=== PATIENT | female | born 1990 | race Caucasian/White ===

== ENCOUNTER 2018-02-28 01:28 | Observation (INO) ==
[2018-02-28] MEDS ORDERED: Naloxone 0.4 MG/ML INJ IVP PRN (05:14)
--- NOTE | 2018-02-28 05:44 | Internal Med History&Physical ---
Date of Encounter: 02/28/18 Time of Encounter: 04:45 Internal Medicine - H&P: HPI Chief complaint: Pulmonary Embolism Admitted From: Home Plans for Post Hospital Care: Home History of present illness: Ms. Izaguirre is a 27 year old female Patient not cooperative with questioning or exam, but from prior ER report patient was out walking in the park when she suddenly felt chest pain. 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 She went to the ER and CT was highly suspicious for acute thromboembolic disease. No evidence of right heart strain. She was given Lovenox at 1mg/kg, and transferred to [facility] for continued management. Of note, her UA was positive for amphetamines. She admitted to using about 3 days ago. She denies chest pain, nausea and vomiting. Does have some upper epigastric pain with palpation. She was sleeping during my examination and would not answer a majority of my questions. Past Med Surg Social Fam HX - Past Medical History Medical history: DVT, other Additional medical history: BLOOD CLOTS IN LEGS DURING Psychiatric history: no psych history - Past Surgical History Surgical History: no surgical history - Social History Smoking Status: Current every day smoker Packs per day: 1pk daily Smokeless Tobacco Status: No Alcohol use: none Drug use: opiates, IV Drug Use, other Internal Medicine - H&P: Meds No Known Home Drugs 02/27/18 [History] 3 Allergy/AdvReac Type Severity Reaction Status Date / Time Amoxicillin Allergy Rash Verified 04/21/15 00:47 CILLINS Allergy Rash Uncoded 02/27/18 22:39 ROS unobtainable: due to mental status All Systems PM: Patient uncooperative with exam, did state she had upper epigastric pain, but denied other pain. - Constitutional Vitals: Temp Pulse Resp BP Pulse Ox 98.2 F 114 18 121/83 99 02/28/18 03:14 02/28/18 03:14 02/28/18 03:14 02/28/18 03:14 02/28/18 03:14 General appearance: Present: no acute distress. Absent: cooperative, mild distress - Head Head exam: Present: normal inspection - Neck Neck exam general surgery: Absent: tenderness - Respiratory Respiratory exam: Present: CTAB. Absent: chest wall tenderness, decreased breath sounds, rales, wheezes - Cardiovascular Cardiovascular exam: Present: RRR. Absent: diastolic murmur, systolic murmur - GI/Abdominal GI/Abdominal exam: Present: normal bowel sounds, tenderness. Absent: distended , firm, guarding Additional comments: Epigastric tenderness - Extremities Exam Extremities exam: Present: warm, radial pulses palpable and symmetrical. Absent : tenderness - Psychiatric Psychiatric exam: Absent: agitated, anxious - Skin Skin exam: Present: dry, normal color, warm - Assessment and plan (1) Pulmonary embolism Current Visit: No Status: Acute Assessment and plan: Patient takes no medications, and has a history of previous blood clots. Apparently her previous clots occurred while she was . She denies having a PE before. Patient should be tested for clotting disorders, though may need to wait until after current treatment is completed. Patient also IV drug abuser, and tricuspid heart valve vegetations are a possibility, leading to septic emboli which could explain her current PE. Continue lovenox 1mg/kg Q12H Consider coagulation workup Consider echocardiogram Consider fci anticoagulation Qualifiers: Qualified Code(s): I26.99 - Other pulmonary embolism without acute cor pulmonale (2) Amphetamine abuse Current Visit: Yes Status: Acute Assessment and plan: Patient's urine tox screen was positive for amphetamines. She states that she last used about 3 days ago. Unclear if related to her pulmonary embolism, but an echo cardiogram should be considered as above Continue to monitor. (3) History of DVT (deep vein thrombosis) Current Visit: Yes Status: Acute Assessment and plan: Currently denies leg pain, not on anticoagulation at time of PE. - Time Spent With Patient Total time spent is greater than 50% in coordination of care (as documented) at patient's floor/unit and/or counseling patient: Greater than 35 minutes
[2018-02-28 06:23] LABS: Hematocrit 38.4 % (35.3-44.9); Hemoglobin 12.1 g/dL (11.5-15.4); Mean Corpuscular HGB Conc 31.5 g/dL (31.6-35.5); Mean Corpuscular Hemoglobin 27.9 pg (28.0-33.3); Mean Corpuscular Volume 88.5 fL (83.0-100.0); Mean Platelet Volume 10.3 fL (9.4-12.4); Platelet Count 231 K/mcL (140-400); Red Blood Count 4.34 M/mcL (3.82-4.97)
[2018-02-28 06:43] LABS: BUN/Creatinine Ratio 16 (6-26); Blood Urea Nitrogen 9 mg/dL (6-20); Calcium 8.9 mg/dL (8.6-10.3); Carbon Dioxide 24 mEq/L (23-29); Chloride 107 mEq/L (98-107); Glucose 107 mg/dL (70-105); Osmolality,Calculated 281 (280-300); Potassium 3.7 mEq/L (3.5-5.1); Sodium 136 mEq/L (136-145); eGFR For African Americans > 60 (> 60); eGFR For Non-African Americans > 60 (> 60)
[2018-02-28] MEDS: *HR* Enoxaparin 60 MG/0.6 ML SYRINGE SQ SCH ×2 (11:25→20:51)
[2018-02-28] MEDS: Acetaminophen 325 MG TABLET PO PRN ×2 (13:33→20:51)
[2018-03-01] MEDS: *HR* Enoxaparin 60 MG/0.6 ML SYRINGE SQ SCH (04:57)
--- NOTE | 2018-03-01 07:48 | Internal Med Progress Note ---
<Rosalio Asencio - Last Filed: 03/01/18 11:09> Date of Encounter: 03/01/18 Time of Encounter: 07:45 - Assessment and plan (1) Pulmonary embolism Current Visit: Yes Status: Acute Assessment and plan: Pulmonary embolism evidenced by infarct on CTA chest History of clotting On therapeutic lovenox Some improvement in symptoms is noted, remains tachycardic Will continue to monitor Qualifiers: Pulmonary embolism type: other Chronicity: acute Acute cor pulmonale presence: without acute cor pulmonale Qualified Code(s): I26.99 - Other pulmonary embolism without acute cor pulmonale (2) Amphetamine abuse Current Visit: Yes Status: Acute Assessment and plan: UDS Positive for Amphetamines Hx of IVDU (3) History of DVT (deep vein thrombosis) Current Visit: Yes Status: Acute (4) Pneumonia Current Visit: Yes Status: Suspected Assessment and plan: Suspected pneumonia, unknown organism patient was febrile overnight, remains tachycardic and SOB overnight Repeat CXR, Blood and urine cultures Qualifiers: Pneumonia type: due to unspecified organism Laterality: unspecified laterality Lung location: unspecified part of lung Qualified Code(s): J18.9 - Pneumonia, unspecified organism - Time Spent With Patient Total time spent is greater than 50% in coordination of care (as documented) at patient's floor/unit and/or counseling patient: - Subjective Interval history: Patient is seen and examined at bedside. She is lying in bed and remains uncomfortable on examination. She says that overnight she continued to have hot flashes, and she is still not feeling very well. She does admit to some shortness of breath. She did have some fevers overnight and she remains tachycardic.. - Constitutional Vitals: Temp Pulse Resp BP Pulse Ox 99.7 F H 101 15 111/73 98 03/01/18 06:17 03/01/18 06:17 03/01/18 06:17 03/01/18 06:17 03/01/18 06:17 General appearance: Present: no acute distress. Absent: cooperative, mild distress Exam: Gen: Vitals noted. No acute distress. Patient is not highly cooperative with examination. Her skin is hyperemic with excessive warmth. HEENT: Normocephalic, atraumatic Neck: Supple. No adenopathy. Cardiac: RRR but tachycardic, no murmur, +S1/S2 Pulmonary: Poor inspiratory effort without obvious crackles, wheezes, rhonchi. Abdomen: soft, nontender, no guarding Back: Nontender throughout. Extremities: no BLE edema, nontender calf, no cyanosis or clubbing Neuro: moves all extremities, no focal deficits. A&Ox3 Psych: Appropriate mood and behavior Internal Medicine: Result - Labs CBC & Chem 7: 03/01/18 07:56 02/28/18 06:01 - Impressions Impressions Echocardiogram 02/28/18 07:30 Impressions: LVEF 70%. Normal LV chamber size, wall thickness and function. Normal left ventricular diastolic function. Normal right ventricular structure and function. No evidence of pulmonary hypertension. No significant valvular dysfunction. No evidence of endocarditis visualized. Left Ventricular Wall Motion: Rest Echo Findings All wall segments showed normal motion. Findings: Study Quality * Technically adequate exam. ECG Findings * Normal sinus rhythm. Left Ventricle * LVEF 70%. * Normal LV chamber size, wall thickness and function. * Normal left ventricular diastolic function. Right Ventricle * Normal right ventricular structure and function. Left Atrium * Normal left atrial size. Right Atrium * Normal right atrial size. Aortic Valve * Normal aortic valve function. * No aortic regurgitation. * No aortic stenosis. Mitral Valve * Normal mitral valve structure and function. * No mitral regurgitation. * No mitral stenosis. Tricuspid Valve * Normal tricuspid valve structure and function. * Trace tricuspid regurgitation. * No evidence of pulmonary hypertension. Pulmonic Valve * Pulmonic valve is not well visualized. Aorta * Normally sized aortic root. Pericardium * The pericardium appears normal. IVC * Normal IVC dimensions and inspiratory collapse. Pulmonary Artery * Normal visualized portions of the main pulmonary artery. Consult Discharge Plan - Plan Referrals: NONE,PCP [Primary Care Provider] - <Rebel Rodriguez - Last Filed: 03/01/18 13:23> Date of Encounter: 03/01/18 - Assessment and plan (1) Amphetamine abuse Current Visit: Yes Status: Acute (2) History of DVT (deep vein thrombosis) Current Visit: Yes Status: Acute (3) Pulmonary embolism Current Visit: Yes Status: Acute Qualifiers: Pulmonary embolism type: other Chronicity: acute Acute cor pulmonale presence: without acute cor pulmonale Qualified Code(s): I26.99 - Other pulmonary embolism without acute cor pulmonale (4) Pneumonia Current Visit: Yes Status: Suspected Qualifiers: Pneumonia type: due to unspecified organism Laterality: unspecified laterality Lung location: unspecified part of lung Qualified Code(s): J18.9 - Pneumonia, unspecified organism - Time Spent With Patient Total time spent is greater than 50% in coordination of care (as documented) at patient's floor/unit and/or counseling patient: - Constitutional Vitals: Temp Pulse Resp BP Pulse Ox 98.7 F 85 15 107/76 99 03/01/18 11:35 03/01/18 11:35 03/01/18 11:35 03/01/18 11:35 03/01/18 11:35 Internal Medicine: Result - Labs CBC & Chem 7: 03/01/18 07:56 02/28/18 06:01 Labs: Short CBC 03/01/18 Range/Units 07:56 WBC 13.7 H (4.3-11.1) K/mcL Hgb 12.3 (11.5-15.4) g/dL Hct 38.2 (35.3-44.9) % Plt Count 259 (140-400) K/mcL Neutrophils # 10.7 H (1.6-8.9) K/mcL - Impressions Impressions Echocardiogram 02/28/18 07:30 Impressions: LVEF 70%. Normal LV chamber size, wall thickness and function. Normal left ventricular diastolic function. Normal right ventricular structure and function. No evidence of pulmonary hypertension. No significant valvular dysfunction. No evidence of endocarditis visualized. Left Ventricular Wall Motion: Rest Echo Findings All wall segments showed normal motion. Findings: Study Quality * Technically adequate exam. ECG Findings * Normal sinus rhythm. Left Ventricle * LVEF 70%. * Normal LV chamber size, wall thickness and function. * Normal left ventricular diastolic function. Right Ventricle * Normal right ventricular structure and function. Left Atrium * Normal left atrial size. Right Atrium * Normal right atrial size. Aortic Valve * Normal aortic valve function. * No aortic regurgitation. * No aortic stenosis. Mitral Valve * Normal mitral valve structure and function. * No mitral regurgitation. * No mitral stenosis. Tricuspid Valve * Normal tricuspid valve structure and function. * Trace tricuspid regurgitation. * No evidence of pulmonary hypertension. Pulmonic Valve * Pulmonic valve is not well visualized. Aorta * Normally sized aortic root. Pericardium * The pericardium appears normal. IVC * Normal IVC dimensions and inspiratory collapse. Pulmonary Artery * Normal visualized portions of the main pulmonary artery. - Attending Attestation I performed an independent interview and exam of this patient. I agree with the findings, assessment, and plan of Dr. Asencio, internal medicine resident. We discussed case together. Patient did have a fever today. I favor this is due to pulmonary embolism and atelectasis. Nonetheless we will check cultures of blood, also chest x-ray 2 view to rule out infection. We will discuss with social work regarding method of anticoagulation which will work with her insurance. She does remain hemodynamically stable satting 99% on room air. Continue to monitor. Gen: AAOx3, ill appearing, dipahoretic Skin Warm Lung - dimin bs bases Ht RRR Abd soft +BS, NT Ext no edema
[2018-03-01 08:09] LABS: Basophils % 0.2 %; Eosinophils % 0.2 %; Hematocrit 38.2 % (35.3-44.9); Hemoglobin 12.3 g/dL (11.5-15.4); Immature Granulocytes % 0.4 % (0-4); Lymphocytes # 1.4 K/mcL (0.6-4.6); Mean Corpuscular HGB Conc 32.2 g/dL (31.6-35.5); Mean Corpuscular Hemoglobin 27.6 pg (28.0-33.3); Mean Corpuscular Volume 85.8 fL (83.0-100.0); Mean Platelet Volume 9.7 fL (9.4-12.4); Monocytes # 1.6 K/mcL (0.0-1.3); Monocytes % 11.5 %; Neutrophils # 10.7 K/mcL (1.6-8.9); Platelet Count 259 K/mcL (140-400); Red Blood Count 4.45 M/mcL (3.82-4.97); Segmented Neutrophils % 77.7 %
[2018-03-01] MEDS: Acetaminophen 325 MG TABLET PO PRN (10:27)
[2018-03-01 16:50] VITALS: BP 123/82
--- NOTE | 2018-03-01 16:51 | Discharge Summary ---
<Rosalio Asencio - Last Filed: 03/01/18 17:34> - NOTES TO OUTPATIENT PROVIDER Notes to Outpatient Provider: Patient presented with hypoxia, was found to have pulmonary embolism on CTA. There was some question about pulmonary infarct on CTA and chest x-ray today, plan to start the patient on IV antibiotics and continue heparin drip for anticoagulation while setting of long-term oral anticoagulation when the patient left AMA. We did plan to start the patient on Xarelto as well as antibiotics today and to monitor. The patient left before prescriptions could be given for these drugs Date of Encounter: 03/01/18 Time of Encounter: 16:25 - Discharge Diagnosis (1) Pulmonary embolism Priority: Primary Status: Acute Assessment and Plan: Pulmonary embolism evidenced by infarct on CTA chest History of clotting, was on therapeutic lovenox Some improvement in symptoms is noted, remains tachycardic Planned to continue anti-coagulation. Sent Xarelto script to [facility] Qualifiers: Pulmonary embolism type: other Chronicity: acute Acute cor pulmonale presence: without acute cor pulmonale Qualified Code(s): I26.99 - Other pulmonary embolism without acute cor pulmonale (2) Amphetamine abuse Priority: Secondary Status: Acute Assessment and Plan: UDS Positive for Amphetamines Hx of IVDU (3) History of DVT (deep vein thrombosis) Priority: Secondary Status: Chronic (4) Pneumonia Priority: Secondary Status: Suspected Assessment and Plan: Suspected pneumonia, unknown organism patient was febrile overnight, remains tachycardic and SOB overnight Planned for repeat CXR, Blood and urine cultures. Patient left prior to blood + urine culture Sent Script for PO Levaquin to [facility] Qualifiers: Pneumonia type: due to unspecified organism Laterality: unspecified laterality Lung location: unspecified part of lung Qualified Code(s): J18.9 - Pneumonia, unspecified organism Hospital course: Ms. Izaguirre is a 27 year old female with history of IV drug use, clotting disorder , DVTs and legs. She presented with dyspnea and was found to have a pulmonary embolism with possible left pulmonary infarct in the lower lobe. She was started on therapeutic Lovenox, however she continued to have tachycardia and did spike a fever overnight. With concern for infection, we repeated the chest x-ray and intended to start Levaquin, however the patient determined that she should leave AMA. I explained the risks to the patient and that she was at high risk for worsening pulmonary status and potentially , and I also explained that she could have a severe infection which will continue to get worse. She understands these risks and she chooses to leave anyway. I explained to her that she is welcome to come back to the ED at any time, and I recommend that she does if able as this treatment is extremely important. I did send a prescription for anticoagulants to pharmacy as well as a prescription for oral Levaquin. The nurses attempted to contact the patient in order to let her know that these prescriptions have been sent. We have been unable to do so at this time. Discharge discussed with: patient, nurse, case management - Time Spent with Patient Total time spent providing and/or coordinating discharge services: Greater than 30 minutes - Discharge Medications Prescriptions: levoFLOXacin [Levaquin] 750 mg PO DAILY #7 tablet Rivaroxaban [Xarelto] 1 dose PO AD 30 Days #1 pack Home Medications: Rivaroxaban [Xarelto] 1 dose PO AD 30 Days #1 pack 03/01/18 [Rx] levoFLOXacin [Levaquin] 750 mg PO DAILY #7 tablet 03/01/18 [Rx] Allergies/Adverse Reactions: 3 Allergy/AdvReac Type Severity Reaction Status Date / Time Amoxicillin Allergy Rash Verified 02/28/18 10:51 CILLINS Allergy Unknown Rash Uncoded 02/28/18 10:51 Date of admission: 02/28/18 03:06 Primary care physician: PCP NONE Discharging clinician: Rosalio Asencio Anticipated date of discharge: 03/01/18 - Constitutional Vitals: Temp Pulse Resp BP Pulse Ox 98.7 F 85 15 107/76 99 03/01/18 11:35 03/01/18 11:35 03/01/18 11:35 03/01/18 11:35 03/01/18 11:35 General appearance: Present: no acute distress. Absent: cooperative, mild distress Exam: Gen: Vitals noted. No acute distress. Patient is not highly cooperative with examination. Her skin is hyperemic with excessive warmth. HEENT: Normocephalic, atraumatic Neck: Supple. No adenopathy. Cardiac: RRR but tachycardic, no murmur, +S1/S2 Pulmonary: Poor inspiratory effort without obvious crackles, wheezes, rhonchi. Abdomen: soft, nontender, no guarding Back: Nontender throughout. Extremities: no BLE edema, nontender calf, no cyanosis or clubbing Neuro: moves all extremities, no focal deficits. A&Ox3 Psych: Appropriate mood and behavior - Patient Status Disposition: Left Against Medical Advice Functional capacity at discharge: independent ambulation Overall status at discharge: patient is not back to baseline - Discharge Instructions Follow Up With: NONE,PCP [Primary Care Provider] - Additional Instructions: Continue Xarelto and Levaquin Return to ED for recurrent symptoms, fever, chills, chest pains, shortness of breath - Diet and Activity Activity: increase activity as tolerated Diet: advance to your usual diet <Rebel Rodriguez - Last Filed: 03/01/18 17:43> Date of Encounter: 03/01/18 - Discharge Diagnosis (1) Amphetamine abuse Status: Acute (2) History of DVT (deep vein thrombosis) Status: Chronic (3) Pulmonary embolism Status: Acute Qualifiers: Pulmonary embolism type: other Chronicity: acute Acute cor pulmonale presence: without acute cor pulmonale Qualified Code(s): I26.99 - Other pulmonary embolism without acute cor pulmonale (4) Pneumonia Status: Suspected Qualifiers: Pneumonia type: due to unspecified organism Laterality: unspecified laterality Lung location: unspecified part of lung Qualified Code(s): J18.9 - Pneumonia, unspecified organism Hospital course: Ms. Izaguirre is a 27 year old female - Time Spent with Patient Total time spent providing and/or coordinating discharge services: Date of admission: 02/28/18 03:06 Primary care physician: PCP NONE - Constitutional Vitals: Temp Pulse Resp BP Pulse Ox 98.7 F 83 15 123/82 92 03/01/18 16:00 03/01/18 16:00 03/01/18 16:00 03/01/18 16:00 03/01/18 16:00 - Attending Attestation Please see my note the progress note. We will attempt to at least ensure patient takes her Xarelto an antibiotic for pneumonia. She was told that this is a life-threatening condition, and that she could if untreated. Despite this patient left AMA. In my opinion has the capacitance to make her own decisions and understand the outcome of them.
== END 2018-03-01 16:56 | disposition left against medical advice (07) ==
LOC: 2NENU
PROVIDERS: ADMIT Family Medicine; ATTEND Family Medicine

== ENCOUNTER → 2021-01-14 05:04 | Observation (INO) ==
[2021-01-14 05:15] LABS: Bilirubin,Urine Negative (Negative); Blood,Urine Negative (Negative); Clarity,Urine Clear (Clear); Color,Urine Colorless (Yellow); Glucose,Urine (UA) Normal (Normal); Ketones,Urine Negative (Negative); Leukocyte Esterase,Urine Negative (Negative); Nitrite,Urine Negative (Negative); PH,Urine 6.5 pH Units (5.0-8.0); Protein,Urine Negative (Neg-Trace); Specific Gravity,Urine 1.006 (1.010-1.025); Urobilinogen,Urine Normal (Normal)
== END | disposition home or self-care (01) ==
LOC: 1NENULAB
PROVIDERS: ADMIT Student in an Organized Health Care Education/Training Program; ATTEND Student in an Organized Health Care Education/Training Program

== ENCOUNTER → 2021-01-28 17:15 | Observation (INO) ==
[2021-01-28 15:52] LABS: Bilirubin,Urine Negative (Negative); Blood,Urine Negative (Negative); Clarity,Urine Turbid (Clear); Color,Urine Light-Yellow (Yellow); Glucose,Urine (UA) Normal (Normal); Ketones,Urine Negative (Negative); Leukocyte Esterase,Urine Large (Negative); Nitrite,Urine Negative (Negative); Protein,Urine Negative (Neg-Trace); Specific Gravity,Urine 1.011 (1.010-1.025); Urobilinogen,Urine Normal (Normal)
[2021-01-28 15:57] LABS: Amorphous Sediment,Urine Few per hpf (None-Few); Bacteria,Urine Few per hpf (None-Few); Mucus,Urine Few per lpf (None-Few); Squamous Epithelial Cell,Urine Moderate per hpf (None-Few); WBC,Urine 15-30 per hpf (0-3)
[2021-01-28 16:59] LABS: Candida DNA Not Detected (Not Detect); Gardnerella DNA DETECTED (Not Detect); Trichomonas DNA Not Detected (Not Detect)
== END | disposition home or self-care (01) ==
LOC: 1NENULAB
PROVIDERS: ADMIT Advanced Practice Midwife; ATTEND Advanced Practice Midwife

== ENCOUNTER 2021-02-07 07:47 | Inpatient (IN) ==
[2021-02-07] MEDS ORDERED: Famotidine 20 MG/2 ML VIAL IVP PRN (08:12)
[2021-02-07] MEDS ORDERED: *HR* Nalbuphine 10 MG/ML AMPUL IV PRN (08:12)
[2021-02-07] MEDS ORDERED: Naloxone 0.4 MG/ML INJ IVP PRN (08:12)
[2021-02-07] MEDS ORDERED: Metoclopramide 10 MG/2 ML VIAL IVP PRN (08:12)
[2021-02-07] MEDS ORDERED: Ringers Solution, Lactated 1,000 ML IVC SCH (08:15)
[2021-02-07 09:20] LABS: Basophils % 0.4 %; Eosinophils # 0.1 K/mcL (0.0-0.6); Eosinophils % 1.1 %; Hematocrit 32.6 % (35.3-44.9); Immature Granulocytes % 2.6 % (0-4); Lymphocytes # 1.6 K/mcL (0.6-4.6); Lymphocytes % 17.5 %; Mean Corpuscular HGB Conc 30.7 g/dL (31.6-35.5); Mean Corpuscular Hemoglobin 27.5 pg (28.0-33.3); Mean Corpuscular Volume 89.8 fL (83.0-100.0); Mean Platelet Volume 10.8 fL (9.4-12.4); Monocytes # 0.9 K/mcL (0.0-1.3); Monocytes % 9.8 %; Neutrophils # 6.4 K/mcL (1.6-8.9); Platelet Count 212 K/mcL (140-400); Red Blood Count 3.63 M/mcL (3.82-4.97); Red Cell Distribution Width 15.4 % (11.5-14.5); Segmented Neutrophils % 68.6 %; White Blood Count 9.4 K/mcL (4.3-11.1)
[2021-02-07 09:30] LABS: Amphetamine Screen,Urine Negative ng/mL (Cutoff=1000); Barbiturate Screen,Urine Negative ng/mL (Cutoff=200); Benzodiazepines Screen,Urine Negative ng/mL (Cutoff=200); Cannabinoid Screen,Urine Negative ng/mL (Cutoff = 50); Cocaine Screen,Urine Negative ng/mL (Cutoff= 300); Opiate Screen,Urine Negative ng/mL (Cutoff=300); Phencyclidine Screen,Urine Negative ng/mL (Cutoff=25)
[2021-02-07] MEDS ORDERED: Oxytocin 20 units/ LR 1000 mL 20 UNIT/1,000 ML BAG IVC SCH ×2 (10:00→18:09)
[2021-02-07] MEDS ORDERED: *HR* FentaNYL (PF) 100 MCG/2 ML VIAL EP ONE (13:41)
[2021-02-07] MEDS ORDERED: EPHEDrine 50 MG/ML VIAL IVP PRN (13:41)
[2021-02-07] MEDS ORDERED: Epidural Premix (fent/bupiv) 110 ML EP SCH (13:45)
[2021-02-07] MEDS ORDERED: *HR* FentaNYL (PF) 100 MCG/2 ML VIAL ONE (13:47)
[2021-02-07] MEDS ORDERED: Lanolin 7 G OINT...G. TP PRN (18:09)
[2021-02-07] MEDS ORDERED: Acetaminophen 325 MG TABLET PO PRN (18:09)
[2021-02-07] MEDS ORDERED: Benzocaine/Menthol 56 GM AEROSOL SPRAY TP PRN (18:09)
[2021-02-07] MEDS: Ibuprofen 600 MG TABLET PO PRN (21:22)
[2021-02-08 05:09] LABS: Basophils % 0.4 %; Eosinophils # 0.1 K/mcL (0.0-0.6); Hematocrit 30.5 % (35.3-44.9); Hemoglobin 9.3 g/dL (11.5-15.4); Immature Granulocytes % 1.1 % (0-4); Lymphocytes # 1.7 K/mcL (0.6-4.6); Lymphocytes % 15.9 %; Mean Corpuscular HGB Conc 30.5 g/dL (31.6-35.5); Mean Corpuscular Hemoglobin 27.4 pg (28.0-33.3); Mean Corpuscular Volume 89.7 fL (83.0-100.0); Mean Platelet Volume 11.4 fL (9.4-12.4); Monocytes # 1.1 K/mcL (0.0-1.3); Monocytes % 9.8 %; Neutrophils # 7.7 K/mcL (1.6-8.9); Platelet Count 194 K/mcL (140-400); Red Cell Distribution Width 15.4 % (11.5-14.5); Segmented Neutrophils % 71.8 %; White Blood Count 10.8 K/mcL (4.3-11.1)
[2021-02-08] MEDS: Ibuprofen 600 MG TABLET PO PRN ×2 (08:43→15:21)
[2021-02-08] MEDS ORDERED: Prenatal Vit/FA 1 EACH TABLET PO SCH (09:00)
[2021-02-08 15:36] VITALS: BP 120/80
== END 2021-02-08 18:42 | disposition home or self-care (01) | DRG 560 ==
LOC: 1NENULAB 07:47 → 1NENUOBS 20:43
PROVIDERS: ADMIT Advanced Practice Midwife; ATTEND Advanced Practice Midwife

== ENCOUNTER → 2021-12-28 19:10 | Observation (INO) ==
[2021-12-28 12:36] LABS: Basophils # 0.1 K/mcL (0.0-0.2); Basophils % 0.5 %; Eosinophils # 0.1 K/mcL (0.0-0.6); Eosinophils % 0.7 %; Hemoglobin 12.3 g/dL (11.5-15.4); Immature Granulocytes % 0.3 % (0-4); Lymphocytes # 1.4 K/mcL (0.6-4.6); Lymphocytes % 14.7 %; Mean Corpuscular HGB Conc 33.2 g/dL (31.6-35.5); Mean Corpuscular Hemoglobin 29.9 pg (28.0-33.3); Mean Platelet Volume 10.2 fL (9.4-12.4); Monocytes # 0.6 K/mcL (0.0-1.3); Neutrophils # 7.1 K/mcL (1.6-8.9); Platelet Count 266 K/mcL (140-400); Red Blood Count 4.11 M/mcL (3.82-4.97); Red Cell Distribution Width 12.3 % (11.5-14.5); Segmented Neutrophils % 77.8 %; White Blood Count 9.2 K/mcL (4.3-11.1)
[2021-12-28 16:08] VITALS: TEMP 98
[2021-12-28 17:12] VITALS: O2SAT 98
[2021-12-28 17:14] VITALS: BP 100/58; PULSE 57
[~2021-12-28 19:10] MED LIST: *HR* FentaNYL (PF) 100 MCG/2 ML VIAL ONE; *HR* HYDROcodone/Acet 5/325 mg TABLET PO ONE; *HR* Midazolam HCl 2 MG/2 ML VIAL ONE; *HR* OxyCODONE Immed Rel 5 MG TABLET PO PRN; *HR* Propofol 200 MG/20 ML VIAL IVP ONE; Acetaminophen IV 1,000 MG/100 ML BAG IVPB ONE; Clindamycin 900 MG/50 ML 900 MG/50 ML IV.SOLN IVPB ONE; Famotidine 20 MG/2 ML VIAL IVP ONE; Ketorolac 30 MG/ML VIAL ONE; Lidocaine -MPF 2% 5 ML VIAL ONE; Methylergonovine 0.2 MG/ML AMPUL IM ONE; Metoclopramide 10 MG/2 ML VIAL IVP ONE; Ondansetron 4 MG/2 ML VIAL IVP PRN; Ondansetron 4 MG/2 ML VIAL ONE; Ringers Solution, Lactated 1,000 ML IVC SCH
== END | disposition home or self-care (01) ==
LOC: 1NENULAB
PROVIDERS: ADMIT Obstetrics & Gynecology; ATTEND Obstetrics & Gynecology